=== PATIENT | male | born 1995 | race African-American/Black ===

== ENCOUNTER 2018-02-21 15:21 | Emergency (ER) | payer SELFPAY ==
[~2018-02-21] VITALS: Ht 177.8 cm; Wt 67.8 kg
[2018-02-21 15:24] VITALS: BP 139/69
== END 2018-02-21 16:56 | disposition home or self-care (01) ==
LOC: ED 15:40
DX: S40.862A Insect bite (nonvenomous) of left upper arm, initial encounter (principal); F90.9 Attention-deficit hyperactivity disorder, unspecified type; W57.XXXA Bitten or stung by nonvenomous insect and other nonvenomous arthropods, initial encounter; Y93.89 Activity, other specified; Y99.8 Other external cause status; Y92.89 Other specified places as the place of occurrence of the external cause
CPT/HCPCS: 99283; Q0177